=== PATIENT | male | born 1955 | race Caucasian/White ===

== ENCOUNTER 2023-10-14 15:58 | Day surgery (SDC) | payer MEDICARE ==
[2023-10-14] MEDS ORDERED: Depo-Medrol 40 MG/ML IM ONE (15:59)
[2023-10-14] MEDS ORDERED: LIDOCAINE HCL 1% 50 MG/5 ML VL PF IJ ONE (15:59)
[2023-10-14] MEDS ORDERED: BUPIVACAINE 0.5% VIAL IJ ONE (15:59)
--- NOTE | 2023-10-14 20:20 | XRAY ---
Indication: Left SI joint injection. Intraoperative fluoroscopy provided for 16 seconds. 2 digital spot image submitted for interpretation demonstrates posterior needle tip projecting over left SI joint. Correlate with intraoperative findings/report.
--- NOTE | 2023-10-15 12:01 | XRAY ---
16 seconds of fluoroscopy was used in surgery for a left sacroiliac joint injection.
== END 2023-10-14 18:20 | disposition home or self-care (01) ==
LOC: SDC-PAIN 15:58
PROVIDERS: ATTEND Psychiatry & Neurology Pain Medicine
DX: M46.1 Sacroiliitis, not elsewhere classified (principal)
CPT/HCPCS: 27096; 72170; 77002; G0260; J1030; J2001